=== PATIENT | female | born 1960 | race Caucasian/White ===

== ENCOUNTER 2016-08-19 14:30 | Outpatient (RCR) | payer MEDICARE, MEDICAID ==
--- NOTE | 2016-05-25 10:21 | PT/OT/ST INITIAL EVALUATION ---
[facility], [facility]. PHYSICAL/OCCUPATIONAL THERAPY [address] [place] [id number] PLAN OF CARE/ASSESSMENT FOR OUTPATIENT REHABILITATION (Complete for Initial Claims Only) 1. PATIENT'S NAME Lauren Gtz 2. ACC. No [id number] 3. PRIMARY DX After care following right knee joint replacement surgery and hip pain on the right side. 4. SECONDARY DX weakness 5. ONSET DATE 02/18/2016 6. REFERRAL DATE 7. SOC. DATE/TIME 05/24/2016 9:25 a.m. 8. PRIOR LEVEL OF FUNCTION; PERTINENT HISTORY (Prior therapy results, reason for referral.) S: Prior to therapy, the patient did consent to today's evaluation and treatment. The patient is a 56-year-old female referred to physical therapy by Dr. Slaughter. The patient rates overall and general health as fair. 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 Primary Complaint: The patient's primary complaint is right hip, lower back pain, as well as anterolateral knee pain. The patient states the right hip pain has kind of come along with her right knee pain and after total knee arthroplasty, has consistently been painful during walking, ascending and descending stairs. General: Just weightbearing through the right lower extremity. The patient states that she had home health coming to her house for the right total knee arthroplasty. She said that progress has ceased there and improvement has kind of plateaued for her, so she requested to her doctor that she have a script written for her to come to PT here in our clinic. The patient states that she has morning stiffness in right knee and right hip. The patient also states that she has recently quit smoking. Prior level of function: She did have mild pain in the right lower extremity and knee, but she was able to perform her all ADLs and IADLs with mild pain. Current function: She is unable to ascend and descend stairs without pain, so she avoids them. She feels weak in her right lower extremity and grocery shopping is too difficult and painful, so she is not able to perform this activity at this time. She is a little afraid to drive currently due to right lower extremity weakness. She is afraid that she is not able to operate the vehicle safely at this point. Therapy History: As mentioned above, the patient has had home health therapy. She felt like her improvement has ceased and so she requested that she come here to our rehabilitation clinic. Maximal pain level 7/10 in her right knee and hip. Neither one is worse than the other. Currently in the clinic today she had 2/10 pain. Her pain is usually at the anterior knee laterally, and then occasionally, she has hip pain that descends down the lateral anterior thigh and she also has mild lower back pain. She currently has the majority of the pain in her right knee. She says that severity of symptoms and locations change throughout the day. The patient describes the pain in the anterior knee as pulling and a dull ache and then down the lateral right lower extremity and hip, she feels like it is a deep pulling pain. Aggravating factors for both hip and knee are weightbearing, walking and stairs. Relieving factors: She feels like rest and stretching her hip makes it feel better and mild exercise makes her feel better. Diagnostic tests: She did have an x-ray of her right hip and nothing was remarkable. No obstacles of delivery of care are observed. Past medical history: History of arthritis, osteoporosis, hypoglycemia, diabetes, ulcers, stomach problems, depression, lung problems, hepatitis and kidney problems. Medication list: She takes Advil and herbal supplements. She is currently taking these to aid with her pain. Prescription medications include Crestor, Viibryd, Synjardy, tramadol, Flexeril and Mobic. The patient's goal for physical therapy is that she needs help with mobility. She would like to relieve her pain. She would like to decrease sleep disturbances throughout the night. She would also like return to driving and to feel safe driving. 9. INITIAL ASSESSMENT/SAFETY PRECAUTIONS/MEDICAL COMPLICATIONS (Level of function at start of care. Be specific, use objective measures, list problems.) O: APPEARANCE AND OBSERVATION: The patient had circumduction of right leg during gait. Her leg was externally rotated during weightbearing and swing phase of gait. Pronated right foot during stance phase, as well during her gait cycle. PALPATION: Palpation of the right lower extremity, lateral right knee, was most painful with tenderness to palpation. L4-5 with central PAs was tender and painful and did not reproduce pain in the right hip. Right piriformis was tender and painful. Reproduction of the right hip with palpation of right piriformis. SPECIAL TESTS: Scours was negative. PANCHITO was deferred due to the knee surgery. Flexion, abduction, and internal rotation were negative. Maurilio's was negative. Posterior and superior sheer test for the SI joint were negative. RANGE OF MOTION/FLEXIBILITY: Her hip flexion was within normal limits on her right and left lower extremity. Her hip extension on her right and left lower extremities were within normal limits. Her knee flexion range of motion was 124 degrees flexion and her knee extension range of motion was lacking -3 degrees from neutral. STRENGTH: Knee flexion 3/5 and knee extension 3/5 on the right lower extremity. Her right hip adduction strength on the right lower extremity was 2+/5, on the left it was 3/5. Her right hip flexion strength was 3/5 and left hip flexion strength was 3/5. Right hip extension strength was 3+/5, and left hip extension strength was 4/5. TODAY'S TREATMENT: Today's treatment consisted of a 40 minute eval and 18 minutes of therapeutic exercise. 10. INITIAL POC: (Specify procedures, modalities, short and termite treater helper goals) A: Due to the patient's right TKA, the patient has an extensor leg on her right lower extremity; as well she has gross lower extremity weakness. Due to the weakness in her right lower extremity she has biomechanical compensations in her gait. The patient relies on kind of ligament stability rather than her muscular stability and due to her weak hip musculature. She is not able to stabilize a lot of the joints descending down the chain. She has pain due to this. The patient's antalgic gait and compensations increase pain with her walking. PROGNOSIS: Due to a personal health rating of fair, the patient has a fair prognosis for therapy. OUTCOME ASSESSMENT: The patient took the lower extremity functional index test. She scored a 30/80. FUNCTIONAL LIMITATIONS: [id number] : [id number]: Include, but not limited to, driving, sleeping, walking, ascending and descending stairs, single leg stance on the right lower extremity, as well as gross balance is affected. The diagnosis, prognosis, treatment plan, risks and expected outcome were discussed with the patient and family. The patient did agree to today's established plan of care. GOALS: 1. In 1 week the patient will be independent with her home exercise program for increased functional independence and improved therapy prognosis. 2. In 4 weeks, the patient will increase right hip abduction strength from 2+/5 to 3+/5 for improved biomechanics during gait and decreased pain during ascending and descending stairs and walking. 3. In 6 weeks, the patient will score a 50/80 on the LEFI outcome assessment in order to have decreased lower extremity functional limitations for increased independence with community ambulation while grocery shopping and safe return to driving. 4. In 6 weeks, the patient will have no exacerbation of symptoms during ascending and descending 10 steps for increased functional independence with navigating stairs in community mobility. P: Plan to treat the patient 3 times per week in order to address compensatory patterns during gait, gross lower extremity weakness on the right lower extremity to decrease pain in the right hip and right knee and to improve functional independence. Treatments include, but are not limited to, modalities for pain and tissue extensibility, manual therapy for improved joint mechanics and mobility, Therex for improved strength and endurance of the required muscles during gait, and normal functional use of right and left lower extremity. Gait training for improved biomechanics during ambulation, balance and proprioceptive training for improved neuromuscular facilitation and activation to decrease chance of falls, neural reeducation for improved joint mechanics and neural muscular recruitment and patient education for the chronicity and pain management. Raji Mcclain, SPT dictating for Catie Perkins, PT 11. PHYSICIAN SIGNATURE ? ON FILE OR ENTER HERE: 12. DATE: I certify the need for these services furnished under this plan of care and if for partial hospitalization. 13. CERTIFICATION FROM THROUGH
--- NOTE | 2016-05-26 14:35 | PT/OT/ST INITIAL EVALUATION ---
Department of Health and Human Services Form Approved Health Care Financing Administration OMB No. [id number] PLAN OF CARE/ASSESSMENT FOR OUTPATIENT REHABILITATION (Complete for Initial Claims Only) 1. LAST NAME Ulisses FIRST NAME Lauren Aragon 2. ACC # [id number] 3. [facility] [id number] 4. PROVIDER NO. [id number] 5. TYPE: X PT 6. PRIOR THERAPY (Same condition) 7. PRIMARY DX After care following right knee joint replacement surgery and hip pain on the right side. 8. SECONDARY DX Right LE weakness 9. ONSET DATE 02/18/2016 10. REFERRAL DATE 11. SOC. DATE/TIME 05/24/2016 9:25 a.m. 12. PRIOR LEVEL OF FUNCTION; PERTINENT HISTORY (Prior therapy results, reason for referral.) S: Prior to therapy, the patient did consent to today's evaluation and treatment. The patient is a 56-year-old female referred to physical therapy by Dr. Slaughter. The patient rates overall and general health as fair. Mechanism of injury: Right total knee arthroplasty and she has right hip pain. Primary Complaint: The patient's primary complaint is right hip, lower back pain, as well as anterolateral knee pain. The patient states the right hip pain precipitated with her right knee pain and after total knee arthroplasty, has consistently been painful during walking, ascending and descending stairs. General: Just weightbearing through the right lower extremity. The patient states that she had home health coming to her house for the right total knee arthroplasty. She said that progress has ceased there and improvement has kind of plateaued for her, so she requested to her doctor that she have a script written for her to come to PT here in our clinic. The patient states that she has morning stiffness in right knee and right hip. The patient also states that she has recently quit smoking. Prior level of function: She did have mild pain in the right lower extremity and knee, but she was able to perform her all ADLs and IADLs with mild pain. Current function: She is unable to ascend and descend stairs without pain, so she avoids them. She feels weak in her right lower extremity and grocery shopping is too difficult and painful, so she is not able to perform this activity at this time. She is afraid to drive currently due right lower extremity weakness. She is afraid that she is not able to operate the vehicle safely at this point. Therapy History: As mentioned above, the patient has had home health therapy. She felt like her improvement has ceased and so she requested that she come here to our rehabilitation clinic. Maximal pain level 7/10 in her right knee and hip. Neither one is worse than the other. Currently in the clinic today she had 2/10 pain. Her pain is usually at the anterior knee laterally, and then occasionally, she has hip pain that descends down the lateral anterior thigh and she also has mild lower back pain. She currently has the majority of the pain in her right knee. She says that this changes during the day throughout. The patient describes the pain in the anterior knee as pulling and a dull ache and then down the lateral right lower extremity and hip, she feels like it is a deep pulling pain. Aggravating factors for both hip and knee are weightbearing, walking and stairs. Relieving factors: She feels like rest and stretching her hip makes it feel better and mild exercise makes her feel better. Diagnostic tests: She did have an x-ray of her right hip and nothing was remarkable. No obstacles of delivery of care are observed. Past medical history: History of arthritis, osteoporosis, hypoglycemia, diabetes, ulcers, stomach problems, depression, lung problems, hepatitis and kidney problems. She also has depression. Medication list: She takes Advil and herbal supplements. She is currently taking these to aid with her pain. Prescription medications include Crestor, Viibryd, Synjardy, tramadol, Flexeril and Mobic. The patient's goal for physical therapy is that she needs help with mobility. She would like to relieve her pain. She would like to decrease sleep disturbances throughout the night. She would also like return to driving and to feel safe driving. 13. INITIAL ASSESSMENT/SAFETY PRECAUTIONS/MEDICAL COMPLICATIONS (Level of function at start of care. Be specific, use objective measures, list problems.) O: APPEARANCE AND OBSERVATION: The patient had circumduction of right leg during gait. Her leg was externally rotated during weightbearing and swing phase of gait. Pronated right foot during stance phase, as well during her gait cycle. PALPATION: Palpation of the right lower extremity, lateral right knee, was most painful with tenderness to palpation. L4-5 with central PAs was tender and painful and did not reproduce pain in the right hip. Right piriformis was tender and painful. Reproduction of the right hip with palpation of right piriformis. SPECIAL TESTS: Scours was negative. PANCHITO was deferred due to the knee surgery. Flexion, abduction, and internal rotation were negative. Maurilio's was negative. Posterior and superior shear test for the SI joint were negative. RANGE OF MOTION/FLEXIBILITY: Her foot flexion was within normal limits on her right and left lower extremity. Her hip extension on her right and left lower extremities were within normal limits. Knee and flexion and extension. Her knee flexion range of motion was 124 degrees flexion and her knee extension range of motion was lacking -3 degrees from neutral. STRENGTH: Knee flexion 3/5 and knee extension 3/5 on the right lower extremity. Her right hip adduction strength on the right lower extremity was 2+/5, on the left it was 3/5. Her right hip flexion strength was 3/5 and left hip flexion strength was 3/5. Right hip extension strength was 3+/5, and left hip extension strength was 4/5. TODAY'S TREATMENT: Today's treatment consisted of a 40 minute eval and 18 minutes of therapeutic exercise. 14. INITIAL POC: (Specify procedures, modalities, short and detention goals) A: Due to the patient's right TKA, the patient has an extensor weakness on her right lower extremity; as well she has gross lower extremity weakness. Due to the weakness in her right lower extremity she has biomechanical compensations in her gait. The patient relies on kind of ligament stability rather than her muscular stability and due to this is having pain in her hip her hip. She is not able to activate muscles to stabilize her joints descending down the lower extremity chain. The patient's antalgic gait and compensations increase pain with her walking. PROGNOSIS: Due to a personal health rating of fair, the patient has a fair prognosis for therapy. OUTCOME ASSESSMENT: The patient took the lower extremity functional index test. She scored a 30/80. FUNCTIONAL LIMITATIONS: [id number] ; [id number] Include, but not limited to, driving, sleeping, walking, ascending and descending stairs, single leg stance on the right lower extremity, as well as gross balance is affected. The diagnosis, prognosis, treatment plan, risks and expected outcome were discussed with the patient and family. The patient did agree to today's established plan of care. GOALS: 1. In 1 week, the patient will be independent with her home exercise program for increased functional independence and improved therapy prognosis. 2. In 4 weeks, the patient will increase right hip abduction strength from 2+/5 to 3+/5 for return to safe driving. 3. In 6 weeks, the patient will have symmetrical gait pattern demonstrating increased right lower extremity strength and ability to perform shopping and housekeeping activities. 4. In 6 weeks, the patient will have a LEFI score of at least 50/80 to safely perform stair ambulation at home and in the community. P: Plan to treat the patient 3 times per week for 6 weeks in order to address compensatory patterns during gait, gross lower extremity weakness on the right lower extremity to decrease pain in the right hip and right knee and to improve functional independence. Treatments include, but are not limited to, modalities for pain and tissue extensibility, manual therapy for improved joint mechanics and joint mobility, Therex for improved strength and endurance of the required muscles during gait, and normal functional use of right and left lower extremity. Gait training for improved biomechanics during ambulation, balance and proprioceptive training for improved neuromuscular facilitation and to decrease chance of falls, neural reeducation for improved joint mechanics and neural muscular recruitment during functional activites and patient education for the chronicity and pain management. 15. FUNCTIONAL LEVEL (End of claim period) 16. PHYSICIAN SIGNATURE ? ON FILE OR ENTER HERE: 17. DATE: I certify the need for these services furnished under this plan of care and if for partial hospitalization. 18. CERTIFICATION FROM THROUGH FORM
[~2016-08-19 14:30] MED LIST: CITA40TA19; CPR500T PO; DOCU-34 PO; GABA300C; MELO15TA14 PO; METR500T17 PO; MULT-954 PO; OMEP40CA3; ONDAN4ODT PO; PRAV40TA2; SUMA50TA14
== END 2016-08-22 | disposition home or self-care (01) ==
LOC: PT 14:30
PROVIDERS: ATTEND Orthopaedic Surgery
DX: Z47.1 Aftercare following joint replacement surgery (principal); Z96.651 Presence of right artificial knee joint; M25.551 Pain in right hip
CPT/HCPCS: 97016; 97035; 97110; 97112; 97140; 97161; 97530; G8978; G8979

== ENCOUNTER 2016-08-27 13:00 | Outpatient (RCR) | payer MEDICARE, MEDICAID | END 2016-09-12 12:00 | disposition home or self-care (01) | LOC: PT 13:00 | PROVIDERS: ATTEND Orthopaedic Surgery | DX: Z96.651 Presence of right artificial knee joint (principal); Z47.1 Aftercare following joint replacement surgery; M25.551 Pain in right hip ==

== ENCOUNTER → 2016-09-08 | Outpatient (CLI) | payer MEDICARE, MEDICAID ==
[2016-09-08 14:50] LABS: BASOPHILS % (AUTO) 1 % (0-2); EOSINOPHILS # (AUTO) 0.7 10^3uL; EOSINOPHILS % (AUTO) 7 % (0-4); LYMPHOCYTES # (AUTO) 2.8 X10^3; MEAN CORPUSCULAR HEMOGLOBIN 27.6 PG (26.0-34.0); MEAN CORPUSCULAR HGB CONC 34.3 g/dL (31.0-37.0); MEAN CORPUSCULAR VOLUME 81 FL (80-100); MEAN PLATELET VOLUME 9.2 FL (6.0-9.5); MONOCYTES # (AUTO) 0.5 X10^3; MONOCYTES % (AUTO) 5 % (3-11); NEUTROPHILS # (AUTO) 5.9 X10^3; NEUTROPHILS % (AUTO) 59 % (51-67); PLATELET COUNT 247 10^3uL (150-450)
[2016-09-08 15:33] LABS: ERYTHROCYTE SEDIMENTATION RT* 10 mm/hr (0-23)
== END ==
LOC: LAB 14:29
PROVIDERS: ATTEND Orthopaedic Surgery
DX: M25.561 Pain in right knee (principal); M25.562 Pain in left knee
CPT/HCPCS: 36415; 85025; 85652; 86140

== ENCOUNTER 2016-10-02 08:51 | Emergency (ER) | payer MEDICARE, MEDICAID ==
[~2016-10-02] VITALS: Ht 165.1 cm; Wt 81.0 kg
--- OUTSIDE RECORDS SUMMARY | 2016-10-02 08:55 | XMS REPORT | Summary of Care ---
Author Author Mitchell Marino M.D. Organization Unknown Address Unknown Phone Unavailable Care Team Providers Care [employer] Helper Name Role Phone Mitchell Marino M.D. Unavailable Unavailable Mitchell Marino Unavailable Unavailable Unavailable Unavailable Functional Status Name Dates Details Functional status health issues are not documented Status: Name Dates Details Cognitive status health issues are not documented Status: Problems Name Dates Details Pain in joint, multiple sites (719.49, M25.50) Status: Active Low back pain (724.2, M54.5) Status: Active Osteopenia (733.90, M85.80) Status: Active Shoulder pain (719.41, M25.519) Status: Active Irritable bowel syndrome (IBS) (564.1, K58.9) Status: Active Vitamin d deficiency (268.9, E55.9) Status: Active Type 2 diabetes mellitus (250.00, E11.9) Status: Active Family history of cerebrovascular accident (CVA) (V17.1, Z82.3) Status: Active Hypercholesterolemia (272.0, E78.0) Status: Active Dizziness (780.4, R42) Status: Active Pneumonia (486, J18.9) Status: Active GERD (gastroesophageal reflux disease) (530.81, K21.9) Status: Active Chest pain (786.50, R07.9) Status: Active Diarrhea (787.91, R19.7) Status: Active UTI symptoms (788.99, R39.9) Status: Active Medications Name Dates Details Cyclobenzaprine HCl - 10 MG Oral Tablet TAKE 1 TABLET 3 TIMES DAILY NEEDED. Refills: 0 Jamila M.D., Mitchell Start 01-Aug-2015 Active Fluticasone Propionate 50 MCG/ACT Nasal Suspension USE 2 SPRAYS IN EACH NOSTRIL ONCE DAILY Refills: 0 [facility]ide M.D., Mitchell Start 01-Aug-2015 Active Fosamax 70 MG Oral Tablet TAKE 1 TABLET ONCE WEEKLY. Refills: 0 [facility]ide M.D., Mitchell Start 01-Aug-2015 Active MetFORMIN HCl - 500 MG Oral Tablet TAKE 2 TABLETS DAILY. Quantity: 60 Refills: 6 Jamila M.D., Mitchell Start 01-Aug-2015 Active Praluent 75 MG/ML Subcutaneous Solution Prefilled Syringe INJECT MG Inject 75 mg subcutaneously once every two weeks Refills: 0 Jamila M.D., Mitchell Start 01-Aug-2015 Active Imitrex 25 MG Oral Tablet TAKE 1 TABLET FOR MIGRAINE RELIEF. MAY REPEAT EVERY 2 HOURS. MAX 200MG/DAY. Refills: 0 [facility]ide M.D., Mitchell Start 01-Aug-2015 Active Mobic 15 MG Oral Tablet TAKE 1 TABLET DAILY. Refills: 0 [facility]ide M.D., Mitchell Start 01-Aug-2015 Active CeleXA 40 MG Oral Tablet TAKE 1 TABLET DAILY. Refills: 0 Lakeside M.D., Mitchell Start 01-Aug-2015 Active Crestor 20 MG Oral Tablet TAKE 1 TABLET DAILY. Refills: 0 Lakeside M.D., Mitchell Start 01-Aug-2015 Active Neurontin 300 MG Oral Capsule TAKE 1 CAPSULE 3 TIMES DAILY. Refills: 0 Lakeside M.D., Mitchell Start 01-Aug-2015 Active NexIUM 40 MG Oral Capsule Delayed Release TAKE 1 CAPSULE DAILY. Refills: 0 Lakeside M.D., Mitchell Start 01-Aug-2015 Active TraMADol HCl - 50 MG Oral Tablet TAKE 1 TABLET 4 TIMES DAILY NEEDED FOR PAIN. Refills: 0 [facility]ide M.D., Mitchell Start 01-Aug-2015 Active Vitamin D3 2000 UNIT Oral Capsule TAKE CAPSULE Take 1 cap po daily Refills: 0 Jamila M.D., Mitchell Start 01-Aug-2015 Active Colace 100 MG Oral Capsule TAKE 1 CAPSULE DAILY. Refills: 0 Lakeside M.D., Mitchell Start 01-Aug-2015 Active Meclizine HCl - 25 MG Oral Tablet TAKE 1 TABLET EVERY 6 HOURS NEEDED. Refills: 0 Jamila M.D., Mitchell Start 01-Aug-2015 Active Zofran 4 MG Oral Tablet TAKE TABLET Take 1 tab po TID PRN Refills: 0 [facility]ide M.D., Mitchell Start 01-Aug-2015 Active Clarithromycin 500 MG Oral Tablet TAKE 1 TABLET TWICE DAILY UNTIL FINISHED. Quantity: 20 Refills: 0 Jamila M.D., Mitchell Start 12-Sep-2015 Active Cefdinir 300 MG Oral Capsule TAKE 1 CAPSULE EVERY 12 HOURS UNTIL GONE. Quantity: 20 Refills: 0 Lakeside M.D., Mitchell Start 12-Sep-2015 Active Sucralfate 1 GM Oral Tablet TAKE 1 TABLET 4 TIMES DAILY, BEFORE MEALS AND AT BEDTIME. Quantity: 120 Refills: 0 Lakeside M.D., Mitchell Start 30-Sep-2015 Active Ciprofloxacin HCl - 500 MG Oral Tablet TAKE 1 TABLET TWICE DAILY. Quantity: 40 Refills: 0 Lakeside M.D., Mitchell Start 30-Sep-2015 Active PredniSONE 50 MG Oral Tablet take 1 daily for 5 days Quantity: 5 Refills: 0 Lakeside M.D., Mitchell Start 30-Sep-2015 Active Allergies and Adverse Reactions Name Dates Details Augmentin TABS (Allergy) Status: Active Dilaudid TABS (Allergy) Status: Active Morphine Sulfate TABS (Allergy) Status: Active PROzac TABS (Allergy) Status: Active Past Medical History Name Dates Details Hypercholesterolemia (272.0, E78.0) Status: Active Irritable bowel syndrome (IBS) (564.1, K58.9) Status: Active Osteopenia (733.90, M85.80) Status: Active Type 2 diabetes mellitus (250.00, E11.9) Status: Active Vitamin d deficiency (268.9, E55.9) Status: Active History of depression (V11.8, Z86.59) Status: Resolved History of Disc degeneration, lumbosacral (722.52, M51.37) Status: Resolved History of Diverticulosis (562.10, K57.90) Status: Resolved History of esophageal reflux (V12.79, Z87.19) Status: Resolved History of fibromyalgia (V13.59, Z87.39) Status: Resolved History of Generalized osteoarthritis (715.00, M15.9) Status: Resolved History of irritable bowel syndrome (V12.79, Z87.19) Status: Resolved History of Recurrent kidney stones (592.0, N20.0) Status: Resolved Procedures Procedure Dates Details History of Cholecystectomy History of Hysterectomy History of Section History of Complete Colonoscopy History of Cystoscopy (Diagnostic) History of Treatment Of Foot Fracture History of Radical Resection Of Clavicle Urinalysis, reflex to Micro and Culture ([facility]) 8016 Ordered: November-2015 Vitamin D, 25 - Hydroxy 3111 Ordered: Immunization Name Dates Details Immunizations not documented Family History Name Dates Details Family history of diabetes mellitus (V18.0, Z83.3) Comments: Multiple Family Members Status: Active Name Dates Details Family history of myocardial infarction (V17.3, Z82.49) Status: Active Family history of malignant neoplasm of cervix (V16.49, Z80.49) Status: Active Family history of cerebrovascular accident (CVA) (V17.1, Z82.3) Status: Active Name Dates Details Family history of Bone cancer (170.9, C41.9) Status: Active Name Dates Details Family history of myocardial infarction (V17.3, Z82.49) Status: Active Family history of Cancer of unknown origin (199.1, C80.1) Status: Active Family history of malignant neoplasm of cervix (V16.49, Z80.49) Status: Active Family history of Ovarian cancer (183.0, C56.9) Status: Active Family history of cerebrovascular accident (CVA) (V17.1, Z82.3) Status: Active Name Dates Details Family history of myocardial infarction (V17.3, Z82.49) Status: Active Family history of pancreatic cancer (V16.0, Z80.0) Status: Active Family history of cerebrovascular accident (CVA) (V17.1, Z82.3) Status: Active Social History Name Dates Details - Status: Name Dates Details Smoker. current status unknown Vital Signs Date Test Result Details No Known Vitals to report Results Date Description Value Details Results not documented Plan of Care Name Dates Details Planned Observations Planned Goals not documented Planned Encounters Appointment; Provider: Mitchell Marino M.D. On 09:00 Interventions Provided Labs/Procedures/ImagingUrinalysis, reflex to Micro and Culture ([facility]) 8016; To be Done: 10 Dec 2015 Instructions Name Dates Details Instructions not documented Encounters Appointment; Mitchell Marino M.D. Encounter Diagnosis: Problem not documented On 30-Sep-2015 13:30 Appointment; Mitchell Marino M.D. Encounter Diagnosis: Problem not documented On 12-Sep-2015 08:15
[2016-10-02] MEDS ORDERED: MELA5TAB5 PO (09:19)
[2016-10-02] MEDS ORDERED: EMPA1TAB7 PO (09:19)
[2016-10-02] MEDS ORDERED: CYCL10TA45 PO (09:19)
[2016-10-02] MEDS ORDERED: CHOL100045 PO (09:19)
[2016-10-02] MEDS ORDERED: TRM50T PO (09:19)
[2016-10-02] MEDS ORDERED: ONDANSETRON 2 MG/ML (Z0FRAN) 2 ML VIAL IV ONE (09:20)
[2016-10-02 09:34] LABS: MEAN CORPUSCULAR HGB CONC 34.6 g/dL (31.0-37.0); MEAN PLATELET VOLUME 9.9 FL (6.0-9.5); PLATELET COUNT 236 10^3uL (150-450); WHITE BLOOD COUNT 13.43 10^3uL (4.0-11.0)
[2016-10-02 09:39] LABS: MEAN CORPUSCULAR HEMOGLOBIN 26.8 PG (26.0-34.0); MEAN CORPUSCULAR VOLUME 77 FL (80-100)
[2016-10-02 09:43] LABS: BAND NEUTROPHILS % 8 % (0-6); EOSINOPHILS % 0 % (0-4); LYMPHOCYTES # 0.7 #; MONOCYTES # 0.5 #; MONOCYTES % 4 % (3-11); RBC MORPH NORMAL (NORMAL); SEGMENTED NEUTROPHILS % 83 % (51-67); TOTAL CELLS COUNTED 100
[2016-10-02 09:46] LABS: CLARITY,URINE Cloudy; COLOR,URINE Yellow; GLUCOSE, URINE (UA) Negative (Negative); LEUKOCYTE ESTERASE ,URINE Negative (Negative); UROBILINOGEN,URINE 0.2 mg/dL (0.2-1.0)
[2016-10-02 09:49] LABS: BILIRUBIN,URINE 1+ (Negative); URINE CENTRIFUGED VOLUME 12 mL
[2016-10-02 09:53] LABS: AMORPHOUS SEDIMENT,UR 1+ /HPF
[2016-10-02 10:02] LABS: ALBUMIN 4.2 g/dL (3.4-5.0); ANION GAP 15.7 MEQ/L (3-15); CALCULATED IONIZED CALCIUM 4.1 mg/dL (3.8-4.6); TOTAL PROTEIN 7.2 g/dL (6.4-8.5)
[2016-10-02 10:40] VITALS: BP 101/58
== END 2016-10-02 10:45 | disposition home or self-care (01) ==
LOC: ED 08:52
DX: R11.2 Nausea with vomiting, unspecified (principal); R19.7 Diarrhea, unspecified; R10.84 Generalized abdominal pain
CPT/HCPCS: 36415; 80053; 81003; 81015; 83690; 85025; 87088; 96361; 96374; 99283; J2405; J7030; 99282